=== PATIENT | female | born 1950 | race Caucasian/White ===

== ENCOUNTER 2017-06-24 11:19 | Emergency (ER) | payer OTHER ==
[2017-06-24 11:39] VITALS: BP 183/77; PULSE 71; RESP 18; TEMP 98.1
--- NOTE | 2017-06-24 13:09 | XR ---
EXAMINATION TYPE: XR shoulder complete 3 views RT, XR wrist complete 4 views RT, XR knee complete 3 views RT DATE OF EXAM: 06/24/2017 COMPARISON: NONE HISTORY: 67-year-old female with pain after fall today FINDINGS: Right shoulder: Mild degenerative change at the AC joint. Subacromial space is preserved. No tendinous or bursal calc ifications. No acute fracture, subluxation, or dislocation. Right wrist: There is some bony irregularity and cystic change at the ulnar proximal aspect of the lunate. Tiny pu nctate density at the ulnar styloid process could represent a small accessory ossicle. There is neutr al ulnar variance. No acute fracture, subluxation, or dislocation is seen. Right knee: Images show right total knee arthroplasty. Both distal femoral and proximal tibial components of the prosthesis are well seated without periprosthetic fracture. Alignment grossly anatomic. There is infr apatellar anterior soft tissue swelling is noted. No significant knee joint effusion. IMPRESSION: 1. Right shoulder: AC joint OA. No acute osseous abnormality seen. 2. Right wrist: Some bony changes involving the lunate can be seen in setting of ulnar impaction synd jules. No acute osseous abnormality seen. 3. Right knee: Uncomplicated right total knee arthroplasty. Suggestion of some anterior infrapatellar soft tissue swelling.
--- NOTE | 2017-06-24 13:18 | CT ---
EXAMINATION TYPE: CT brain zahira wo con DATE OF EXAM: 06/24/2017 COMPARISON: NONE HISTORY: Fall CT DLP: 1452.1 mGycm, Automated exposure control for dose reduction was used. CONTRAST: None CT of the brain is performed utilizing 3 mm thick sections through the posterior fossa and 3 mm thick sections through the remaining calvarium. Study is performed within 24 hours of arrival to the hospital. No abnormal hyperdensity is present to suggest an acute intracranial hemorrhage. No mass lesion is evident. No acute infarcts are evident. Ventricles and sulci are appropriate for the patient age. There are a few inferior posterior left mastoid air cells containing fluid. Mild mastoiditis should b e considered. Remaining mastoid air cells as well as the paranasal sinuses appear clear as visualized . No acute fractures are evident. IMPRESSIONS: 1. No acute intracranial process. 2. Mild fluid within the posterior inferior left mastoid air cells. Correlate for mild mastoiditis. CT cervical spine. COMPARISON: None CT of the cervical spine is performed in the axial plane at 2 mm thick sections. Reconstructed image s in the coronal, and sagittal plane are reviewed on the computer. No acute fractures are evident. Vertebral body alignment is normal. Degenerative disc changes are present throughout the cervical spine. Vertebral body heights are preserved. C6-7 endplate spurring has mild anterior thecal sac compression. Bilateral foraminal narrowing, right greater than left is present from uncovertebral joint hypertrophy. Uncovertebral joint hypertrophy i s causing bilateral foraminal narrowing right more so than left facet hypertrophy is present C2-C3 on the left. IMPRESSIONS: 1. Degenerative disc changes, uncovertebral joint hypertrophy and foraminal narrowing discussed above
--- NOTE | 2017-06-24 13:19 | ED ---
General Adult HPI - General Chief complaint: Fall Stated complaint: fall, rt knee, elbow, shoulder, head injury Time Seen by Provider: 06/24/17 12:18 Source: patient, RN notes reviewed Mode of arrival: wheelchair Limitations: no limitations - History of Present Illness Initial comments: Patient is a 67-year-old female who presents emergency room today with a chief complaint of a fall that occurred just prior to arrival. She states that she was getting out of a car slipping falling down on the right side. States she hit her right knee, right wrist, right shoulder, right side of her head. Patient states there is no loss consciousness. She does admit to a little headache. States it is better after she put some ice on her head. She admits some pains and swelling to the right knee worse with certain movements along with right shoulder and right wrist. Patient denies any other complaints or symptoms currently. Patient denies any recent fever, chills, shortness of breath, chest pain, back pain, abdominal pain, nausea or vomiting, numbness or tingling, headaches or visual changes, or any other complaints. - Related Data Allergies Allergy/AdvReac Type Severity Reaction Status Date / Time Penicillins Allergy Itching Verified 06/24/17 11:40 cephalexin [From Keflex] AdvReac Diarrhea Verified 06/24/17 11:40 sulfamethoxazole AdvReac Diarrhea Verified 06/24/17 11:40 [From Bactrim] trimethoprim [From Bactrim] AdvReac Diarrhea Verified 06/24/17 11:40 ziprasidone [From Geodon] AdvReac Hallucinati Verified 06/24/17 11:40 ons Review of Systems ROS Statement: Those systems with pertinent positive or pertinent negative responses have been documented in the HPI. ROS Other: All systems not noted in ROS Statement are negative. Past Medical History Past Medical History: Asthma, Hypertension, Osteoarthritis (OA) Additional Past Medical History / Comment(s): recovering alcoholic, chronic bronchitis, right shoulder pain History of Any Multi-Drug Resistant Organisms: None Reported Past Surgical History: Joint Replacement Additional Past Surgical History / Comment(s): bilateral knee replacement, cataract Past Psychological History: Anxiety, Depression Smoking Status: Never smoker Past Alcohol Use History: None Reported Past Drug Use History: None Reported General Exam Limitations: no limitations Course Vital Signs 06/24/17 11:35 Temperature 98.1 F Pulse Rate 71 Respiratory 18 Rate Blood Pressure 183/77 O2 Sat by Pulse 99 Oximetry Medical Decision Making - Medical Decision Making Patient reexamined at this time shows no signs of distress. Patient's CAT scan of the head and neck have been reviewed showing no acute abnormalities. The most, about possible concern for mastoiditis. Patient has no tenderness over either mastoid bone. Patient's x-rays do show arthritis Disposition Clinical Impression: Fall, Knee contusion, Wrist sprain, Shoulder pain, Concussion Disposition: HOME SELF-CARE Condition: Good Instructions: Concussion (ED) Additional Instructions: Please follow-up with employee health as discussed. Please use ibuprofen for pain. Please limit physical activity as discussed. Please return to emergency room symptoms increase or worsen or fail concerns. Referrals: Jesenia Hudson MD [Primary Care Provider] - 1-2 days Time of Disposition: 13:38
== END 2017-06-24 13:47 | disposition home or self-care (01) ==
LOC: EC 11:19
DX: S06.0X0A Concussion without loss of consciousness, initial encounter (principal); S63.501A Unspecified sprain of right wrist, initial encounter; S80.01XA Contusion of right knee, initial encounter; M25.511 Pain in right shoulder; M19.90 Unspecified osteoarthritis, unspecified site; Z88.0 Allergy status to penicillin; Z88.1 Allergy status to other antibiotic agents; Z88.8 Allergy status to other drugs, medicaments and biological substances; Z96.653 Presence of artificial knee joint, bilateral; W01.10XA Fall on same level from slipping, tripping and stumbling with subsequent striking against unspecified object, initial encounter; Y93.89 Activity, other specified; Y92.480 Sidewalk as the place of occurrence of the external cause; Y99.0 Civilian activity done for income or pay
CPT/HCPCS: 70450; 72125; 99284

== ENCOUNTER → 2017-06-27 | Outpatient (CLI) | payer OTHER ==
--- NOTE | 2017-06-27 11:49 | XR ---
EXAMINATION TYPE: XR chest 2V, XR ribs RT DATE OF EXAM: 06/27/2017 CLINICAL HISTORY: Pain, Fall Four views of the ribs fail demonstrate evidence for displaced rib fracture or secondary sign of rib fracture. Visualized lungs are clear. No evidence for pneumothorax. IMPRESSION: 1. No displaced rib fractures seen. ICD 10 NO FRACTURE, INITIAL EVALUATION EXAMINATION TYPE: XR chest 2V, XR ribs RT DATE OF EXAM: 06/27/2017 COMPARISON: NONE HISTORY: Shortness of breath TECHNIQUE: Frontal and lateral views of the chest are obtained. FINDINGS: Scattered senescent parenchymal changes noted. Hyperinflation compatible with COPD. No evidence for infiltrate. No evidence for atelectasis. Mild chronic elevation right hemidiaphragm. Heart size is stable. Mediastinal structures are stable and grossly unremarkable. No evidence for hilar prominence. Degenerative changes dorsal spine. IMPRESSION: 1. No evidence for acute pulmonary disease.
== END ==
LOC: RADXRMAIN 11:14
PROVIDERS: ATTEND Emergency Medicine
DX: S23.41XA Sprain of ribs, initial encounter (principal)
CPT/HCPCS: 71046

== ENCOUNTER → 2017-07-08 | Outpatient (CLI) | payer OTHER ==
--- NOTE | 2017-07-08 16:21 | CT ---
EXAMINATION TYPE: CT knee RT wo con DATE OF EXAM: 07/08/2017 COMPARISON: NONE HISTORY: Contusion right knee. Fall 2 weeks ago. Clicking since. CT DLP: 400.5 mGycm Automated exposure control for dose reduction was used. Technique: Images are obtained through the right knee and 3 mm thick sections in the axial plane. Rec onstructed images in the coronal and sagittal plane are reviewed. Beam hardening artifact is affected portions of the exam. FINDINGS: Surrounding soft tissue appears unremarkable. Musculature appears unremarkable. There is a knee prosthesis present with tibial and femoral components. A plastic component may be pos terior to the patella. No significant joint effusion is evident. No acute fractures are identified. S uspicious lucency adjacent to the prosthesis is not evident. IMPRESSION: 1. RIGHT KNEE PROSTHESIS. NO LOOSENING OR FRACTURE IS IDENTIFIED.
== END | disposition home or self-care (01) ==
LOC: RADCTMAIN 15:48
PROVIDERS: ATTEND Emergency Medicine
DX: S80.01XA Contusion of right knee, initial encounter (principal); Z96.651 Presence of right artificial knee joint